=== PATIENT | female | born 2005 | race Caucasian/White ===

== ENCOUNTER 2023-10-16 12:55 | Outpatient (REF) | payer BC, SELFPAY ==
[2023-10-17 13:23] LABS: Chlamydia Result Negative (Negative); GC Result Negative (Negative)
== END 2023-10-16 12:56 | disposition home or self-care (01) ==
LOC: LBN 12:55
PROVIDERS: PCP Nurse Practitioner Pediatrics; Visit Provider Obstetrics & Gynecology Gynecology
DX: Z11.3 Encounter for screening for infections with a predominantly sexual mode of transmission (principal)
CPT/HCPCS: 87491; 87591

== ENCOUNTER 2024-10-21 11:40 | Outpatient (REF) | payer BC, SELFPAY ==
--- NOTE | 2024-10-21 11:20 | PAPFT_PTH ---
PATIENT: EULALIA HILLIARD LOC: [facility] U#:[id number] AGE/SX: 19/F ROOM: RE10/21/[address]: Amaya Shipley : 2005 BED: DIS: 10/21/2024 SPEC #: [id number] RECD: 10/21/24 13:00 STATUS: JOHNSON RETate #: [id number] NASH: 10/21/24 11:[address]: Amaya Shipley DEPT: [facility] Cytology RECD BY: Patrica Becerril ENTERED: 10/21/24 13:00 SP TYPE: PAPFT OT DR: Diallo Jernigan NP Tissues: 1 - CX/ENDOCX FOR PAP SMEARS Procedures: PAP THIN PREP/[facility] Screening Comments: [id number]
== END 2024-10-21 11:41 | disposition home or self-care (01) ==
LOC: LBN 11:40
PROVIDERS: PCP Nurse Practitioner Pediatrics; Visit Provider Obstetrics & Gynecology Gynecology
DX: Z01.419 Encounter for gynecological examination (general) (routine) without abnormal findings (principal); Z30.46 Encounter for surveillance of implantable subdermal contraceptive
CPT/HCPCS: 88142